=== PATIENT | male | born 1985 | race African-American/Black ===

== ENCOUNTER 2017-04-19 20:25 | Emergency (ER) | payer SELFPAY ==
[2017-04-19] MEDS ORDERED: EPINEPHrine 10 ML SYRINGE (0.1 MG/ML) ONE (20:30)
[2017-04-19] MEDS ORDERED: SODIUM CHLORIDE 0.9% 1,000 ML IV STA (20:39)
[2017-04-19] MEDS ORDERED: RX INFO: IV CONTRAST WAS GIVEN 1 EACH MISC MISCELLANE PRN (20:39)
[2017-04-19] MEDS ORDERED: MORPHINE SULFATE 4 MG/ML SYRINGE IVP STA (20:40)
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
[2017-04-19 20:53] LABS: Glucose,Whole Blood 33 mg/dL (75-99)
[2017-04-19 21:11] LABS: Basophils % (A) 1 %; CH 26.7; CHCM 29.6; Eosinophils # (A) 0.1 k/uL (0-0.7); Eosinophils % (A) 1 %; HCT 44.6 % (39.0-53.0); HDW 2.59; HGB 13.7 gm/dL (13.0-17.5); Hypochromasia Marked; Luc # (Auto) 0.15; Luc % (Auto) 4; Lymphocytes # (A) 2.1 k/uL (1.0-4.8); Lymphocytes % (A) 55 %; MCH 27.7 pg (25.0-35.0); MCHC 30.6 g/dL (31.0-37.0); MCV 90.5 fL (80.0-100.0); Mean Platelet Volume 9.8; Monocytes # (A) 0.3 k/uL (0-1.0); Monocytes % (A) 8 %; Neutrophils # (A) 1.2 k/uL (1.3-7.7); Neutrophils % (A) 31 %; RBC 4.93 m/uL (4.30-5.90); RDW 12.3 % (11.5-15.5); WBC 3.8 k/uL (3.8-10.6); WBC (Perox) 3.13
[2017-04-19 21:18] LABS: ALT 639 U/L (21-72); AST 723 U/L (17-59); Alcohol <10 mg/dL; Alkaline Phosphatase 35 U/L (38-126); Amylase 215 U/L (30-110); Anion Gap 15 mmol/L; Blood Urea Nitrogen 15 mg/dL (9-20); Calcium 8.2 mg/dL (8.4-10.2); Carbon Dioxide 18 mmol/L (22-30); Chloride 106 mmol/L (98-107); Glucose 372 mg/dL (74-99); Non-African American GFR(MDRD) >60 (>60 ml/min/1.73 sqM); Sodium 139 mmol/L (137-145); Total Bilirubin 0.8 mg/dL (0.2-1.3); Total Protein 6.5 g/dL (6.3-8.2)
[2017-04-19 21:33] LABS: Potassium 7.3 mmol/L (3.5-5.1)
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
[2017-04-19 21:46] LABS: Creatine Kinase MB 36.8 ng/mL (0.0-2.4); Troponin I 12.6 ng/mL (0.000-0.034)
[2017-04-19 21:56] LABS: Manual Review Performed
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
== END 2017-04-20 01:06 | disposition expired ==
LOC: EDBD → EC 20:25
DX: I46.9 Cardiac arrest, cause unspecified (principal); S06.9X9A Unspecified intracranial injury with loss of consciousness of unspecified duration, initial encounter; V43.52XA Car driver injured in collision with other type car in traffic accident, initial encounter; Y92.410 Unspecified street and highway as the place of occurrence of the external cause
CPT/HCPCS: 99291 ×2; 31500 ×2; 33010; 36415; 86900; 86901; 80053; 82150; 82550; 82553; 83690; 84484; 85025; 86850; 80320; 71010; J0171; 94002